=== PATIENT | female | born 1945 | race Caucasian/White ===

== ENCOUNTER 2024-02-26 15:27 | Emergency (ER) | payer MEDICARE, SELFPAY ==
[2024-02-26 15:42] VITALS: BP 166/91
[2024-02-26 16:09] LABS: % Basophils 0.4 % (0-2); % Eosinophils 1.3 % (0-6); % Immature Granulocytes 0.2 % (0-0.5); % Lymphocytes 30.3 % (20.5-51.1); % Monocytes 8.3 % (1.7-9.3); % Neutrophils 59.5 % (42.2-75.2); Absolute Eosinophils 0.1 10^3/uL (0-0.7); Absolute Lymphocytes 1.6 10^3/uL (1.2-3.4); Absolute Monocytes 0.4 10^3/uL (0.1-0.6); Absolute Neutrophils 3.2 10^3/uL (1.4-6.5); Hematocrit 35.1 % (37.0-47.0); Hemoglobin 10.8 g/dL (12.0-16.0); Mean Corp Hgb Conc. 30.8 g/dL (33.0-37.0); Mean Platelet Volume 11.6 fL (7.4-10.4); Nucleated Red Blood Cells % 0 %; Platelet Count 275 10^3/uL (130-400); Red Cell Dist. Width 16.2 % (11.5-14.5); White Blood Cell Count 5.3 10^3/uL (4.8-10.8)
[2024-02-26 16:25] LABS: COVID-19 Antigen Negative (Negative)
[2024-02-26 16:38] LABS: ALT (SGPT) 12 U/L (0-35); AST (SGOT) 30 U/L (14-36); Albumin 4.4 g/dl (3.5-5.0); Alkaline Phosphatase 87 U/L (38-126); Blood Urea Nitrogen 26 mg/dl (7-17); Calcium 9.7 mg/dl (8.4-10.2); Carbon Dioxide 22 mmol/L (22-30); Chloride 97 mmol/L (98-107); Glucose 108 mg/dl (70-99); Potassium 5.1 mmol/L (3.5-5.1); Sodium 134 mmol/L (135-145); Total Bilirubin 0.7 mg/dl (0.2-1.3); Total Protein 7.2 g/dl (6.3-8.2); eGFR 51.75
--- NOTE | 2024-02-26 19:25 | EDRN ---
Called for pt; no answer in [place].
--- NOTE | 2024-02-26 19:31 | EDRN ---
Called pt; she was home and did not want to return. Informed that she flu test was positive. Informed to hydrate, OTC meds for fevers and aches. Stressed to pt to return of she changes her mind or if she become short of breath or feels worse in any
way.
== END 2024-02-26 19:35 | disposition left against medical advice (07) ==
LOC: EMR 15:27
PROVIDERS: EMERGENCY PHYSICIAN Emergency Medicine
DX: J11.1 Influenza due to unidentified influenza virus with other respiratory manifestations (principal); Z11.52 Encounter for screening for COVID-19
CPT/HCPCS: 99281; 71046; 80053; 85025; 87502; 87811; 93005